=== PATIENT | female | born 1965 | race Caucasian/White ===

== ENCOUNTER 2016-09-11 09:41 | Outpatient (CLI) | payer OTHER ==
[2010-12-01 19:54] VITALS: BMI 33.3
--- NOTE | ~2016-09-11 | HEMODYNAMI ---
PATIENT:RODNEY ELIZABETH MEDICAL RECORD: [id number] : 65 LOCATION:[facility] ADMISSION DATE: 09/11/16 Generatedon:09/11/201615:40 Patient name: RODNEY ELIZABETH Patient #: [id number] SSN: : 1965 Date of study: 09/11/2016 Page: Of Hemodynamic Procedure Report Patient Data Patient Demographics Procedure consent was obtained First Name: RODNEY Gender: Female Last Name: GLENN : 1965 [facility] Initial: A Age: 51 year(s) Patient #: [id number] Race: Additional ID: [id number] Contact details Address: [address] [place] [address] State: [place] City: [place] Zip code: [address] Past Medical History Allergies: No known allergies Admission Admission Data Admission Date: 09/11/2016 Admission Time: 9:41 Admit Source: Emergency Insurance Payor: [facility] department Health Care Height (in.): 64 BSA: 1.94 (m2) Height (cm.): 162.56 BMI: 33.81 (kg/m2) Weight (lbs.): 197 Weight (kg.): 89.36 Medications upon Admission Medications Dosage Times Administered Last Remarks per Delivery Day Date and Time Clopidogrel Yes 09/11/2016 0:00 Aspirin Yes 09/11/2016 (any) 0:00 Current Diagnosis Diagnosis Description Unstable angina Lab Results Lab Result Date: 09/11/2016 Lab Result Time: 0:00 Biochemistry Name Units Result Min Max BUN mg/dl 14 --(--*-)-- 7 18 Creatinine mg/dl 0.7 --(*---)-- 0.6 1.3 CBC Name Units Result Min Max Hemoglobin g/dl 12.8 -*(----)-- 13.5 17.5 Procedure Procedure Types Cath Procedure Diagnostic Procedure C LH w/Coronaries Miscellaneous Procedures Moderate Sedation up to 15 minutes Procedure Description Procedure Date Procedure Date: 09/11/2016 Procedure Start Time: 15:29 Procedure End Time: 15:40 Procedure Staff Name Function Nicholas Barrow MD Performing Physician Alan Clancy RN Nurse Mundo Mccormick RT Scrub Mary Ann Cardozo RT Monitor Procedure Data Cath Procedure Fluoroscopy Diagnostic fluoroscopy Total fluoroscopy Time: 1.2 time: 1.2 min min Diagnostic fluoroscopy Total fluoroscopy dose: dose: 100.28 mGy 100.28 mGy Contrast Material Contrast Material Type Amount (ml) Isovue 300 43 Entry Location Entry Primary Successful Side Size Upsize Upsize Entry Closure [place]ley ccessful Closure Location (Fr) 1 (Fr) 2 (Fr) Remarks Device Remarks Radial Right 6 Fr Mechanical artery Short Compression Estimated blood loss: 5 ml Diagnostic catheters Device Type Used For End Catheter Placement Terumo 5Fr [place] 110cm LV Angiography catheter Terumo 5Fr [place] 110cm Left Coronary catheter Angiography Terumo 5Fr [place] 110cm Right Coronary catheter Angiography Procedure Complications No complications Procedure Medications Medication Administration Route Dosage Oxygen NC 2 l/min Heparin Flush Bag added to field 2 bags (1000units/500ml NS) 0.9% NaCl I.V. 100 ml/hr Fentanyl I.V. 100 mcg Versed I.V. 2 mg Fentanyl I.V. 50 mcg Versed I.V. 1 mg Fentanyl I.V. 50 mcg Versed I.V. 1 mg Radial Cocktail added to field 1 syringe (Verapomil 2mg/Nitro 400mcg/Heparin 1500units) Radial Cocktail I.A. 1 syringe (Verapomil 2mg/Nitro 400mcg/Heparin 1500units) Hemodynamics Rest BSA: 1.94 (m2) HGB: 12.8 (g/dl) O2 Consumption: Estimated: 180.91 (ml/min) O2 Co nsumption indexed: Estimated:93.25 (ml/min/m) Heart Rate: 59 (bpm) Snapshots Pre Cath Intra NCS Post Cath Vital Signs Time Heart Resp SPO2 NIBP (mmHg) Rhythm Pain Sedation Rate (ipm) (%) Status Level (bpm) 14:58:44 62 18 99 144/68(71) NSR 0 (11) 10(A) , No pain 15:03:08 56 18 95 151/79(107) NSR 0 (11) 10(A) , No pain 15:07:32 50 18 97 126/64(80) NSR 0 (11) 10(A) , No pain 15:11:54 51 18 98 117/59(81) NSR 0 (11) 9(A) , No pain 15:16:14 51 17 98 108/59(73) NSR 0 (11) 9(A) , No pain 15:20:30 54 17 98 104/62(79) NSR 0 (11) 9(A) , No pain 15:24:42 53 17 97 103/56(73) NSR 0 (11) 9(A) , No pain 15:28:58 52 17 97 105/58(76) NSR 0 (11) 9(A) , No pain 15:33:18 58 16 95 112/47(73) NSR 0 (11) 9(A) , No pain 15:37:34 70 17 92 88/50(63) NSR 0 (11) 9(A) , No pain 15:39:55 56 18 94 91/44(72) NSR 0 (11) 9(A) , No pain Medications Time Medication Route Dose Verified Delivered Reason Notes Effectiveness by by 15:12:58 Oxygen NC 2 l/min Alan Alan Per Aston Clancy RN physician RN 15:13:09 Heparin Flush added 2 bags Alan Alan used for Bag to Aston Clancy RN procedure (1000units/500ml RN NS) 15:14:37 0.9% NaCl I.V. 100 Alan Alan Per ml/hr Aston Calncy RN physician RN 15:27:59 Fentanyl I.V. 100 mcg Alan Alan for sedation Aston Clancy RN RN 15:28:06 Versed I.V. 2 mg Alan Alan for sedation Aston Clancy RN RN 15:29:56 Fentanyl I.V. 50 mcg Alan Alan for sedation Aston Clancy RN RN 15:29:59 Versed I.V. 1 mg Alan Alan for sedation Aston Clancy RN RN 15:31:57 Fentanyl I.V. 50 mcg Alan Alan for sedation Aston Clancy RN RN 15:32:00 Versed I.V. 1 mg Alan Alan for sedation Aston Clancy RN RN 15:33:10 Radial Cocktail added 1 Alan Alan used for (Verapomil to syringe Aston Clancy RN procedure 2mg/Nitro field RN 400mcg/Heparin 1500units) 15:33:15 Radial Cocktail I.A. 1 Alan Peterson for (Verapomil syringe Aston Barrow MD vasodilation 2mg/Nitro RN 400mcg/Heparin 1500units) Procedure Log Time Note 13:21:28 Time tracking: Regular hours 13:21:32 Plan of Care:Hemodynamics will remain stable., Cardiac rhythm will remain stable., Comfort level will be maintained., Respiratory function will remain adequate., Patient/ family verbilizes understanding of procedure., Procedure tolerated without complication., Recovers from procedure without complications.. 13:21:36 Admit Source: Emergency department 14:30:33 Mary Ann Cardozo RT(R) sent for patient. Start room use. 14:46:35 Patient received from ED to CCL 3 Alert and oriented. Tansferred to table in Supine position. 14:46:36 Warm blankets applied, and torri hugger turned on for patient comfort. 14:46:36 Correct patient and procedure confirmed by team. 14:46:38 Signed procedure consent form obtained from patient. 14:46:39 ECG and BP/O2 sat monitors applied to patient. 14:46:48 Vital chart was started 14:46:49 Baseline sample Acquired. 14:46:53 Rhythm: sinus bradycardia 14:46:54 Full Disclosure recording started 14:46:59 H&P Date Dictated: 09/11/2016 Within 30 days and on chart.. 14:47:00 Pre-procedure instructions explained to patient. 14:47:01 Pre-op teaching completed and patient verbalized understanding. 14:47:03 Family in waiting room. 14:47:05 Patient NPO since Midnight. 14:47:18 Is the patient allergic to Iodine/contrast media? No. 14:48:22 Patient allergic to No known allergies 14:49:54 Is patient on blood thinner?Yes 14:49:57 ACC The patient was administered the following blood thiners within the last 24 hours: ACCPlavix 14:49:59 Patient diabetic? No. 14:50:02 ----Pre-sedation anethsthesia assessment.---- 14:50:04 Previous problem with sedation/anesthesia? No ? 14:50:05 Snore? Yes 14:50:07 Sleep apnea? No 14:50:08 Deviated septum? No 14:50:09 Opens mouth fully? Yes 14:50:10 Sticks out tongue? Yes 14:50:12 Airway obstruction? No ? 14:50:14 Dentures? No ? 14:50:17 Pre procedure: right dorsailis pedis pulse 1+ Palpable, but thready & weak; easily obliterated 14:50:21 Modified Singh's test Ulnar < 7 seconds 14:50:24 Patient pain scale 0/10 ?. 14:50:29 IV patent on arrival in left antecubital with 0.9% NaCl at 10ml/hr. 14:50:46 Right Radial & Right Groin area was prepped with chlora-prep and draped in sterile fashion 14:50:47 Alarms reviewed by R. N. 14:50:47 Sharps counted by scrub and verified by R.N. 14:55:05 Lab Result : BUN 14 mg/dl 14:55:05 Lab Result : Creatinine 0.7 mg/dl 14:55:05 Lab Result : Hemoglobin 12.8 g/dl 14:55:45 Lab results completed and on chart. 14:57:03 Patient Weight : 89.36 lbs 14:57:06 Patient Height : 162.56 inches 14:57:08 Current Diagnosis : Unstable angina 14:57:23 Use device set Radial Dx 14:57:25 Acist Syringe opened to sterile field. 14:57:25 Medline Cath Pack opened to sterile field. 14:57:26 Bag Decanter opened to sterile field. 14:57:26 Terumo 6Fr Slender Glidesheath opened to sterile field. 14:57:26 St Bradley 260cm J .035 wire opened to sterile field. 14:57:27 Acist Hand Control opened to sterile field. 14:57:27 Acist Manifold opened to sterile field. 14:57:28 Tegaderm 4 x 4 opened to sterile field. 14:58:50 IV Extension Set opened to sterile field. 14:59:25 Insurance Payor : [facility] 15:00:35 IV started by Alan Clancy RN inleft hand with a 22 gauge IV catheter with 0.9% NaCl at KVO. 15:01:05 22g IV Catheter opened to sterile field. 15:12:58 Oxygen 2 l/min NC was given by Alan Clancy RN; Per physician; 15:13:09 Heparin Flush Bag (1000units/500ml NS) 2 bags added to field was given by Alan Clancy RN; used for procedure; 15:14:37 0.9% NaCl 100 ml/hr I.V. was given by Alan Clancy RN; Per physician; 15:27:25 Final Timeout: patient, procedure, and site verified with staff and physician. All members of the team are in agreement. 15::29 Right Radial site verified by team. 15:27:36 Physical assessment completed. ASA score P 2 - A patient with mild systemic disease as per Nicholas Barrow MD. 15:27:38 Sedation plan: IV Moderate Sedation Versed, Fentanyl 15::59 Fentanyl 100 mcg I.V. was given by Alan Clancy RN; for sedation; 15:28:06 Versed 2 mg I.V. was given by Alan Clancy RN; for sedation; 15:29:41 Procedure started. 15:29:47 Local anesthetic to right radial artery with Lidocaine 2% by Nicholas Barrow MD.INITIAL ACCESS ONLY 15:29:56 Fentanyl 50 mcg I.V. was given by Alan Clancy RN; for sedation; 15::59 Versed 1 mg I.V. was given by Alan Clancy RN; for sedation; 15:31:23 A 6 Fr Short sheath was inserted into the Right Radial artery 15:31:57 Fentanyl 50 mcg I.V. was given by Alan Clancy RN; for sedation; 15:32:00 Versed 1 mg I.V. was given by Alan Clancy RN; for sedation; 15:33:10 Radial Cocktail (Verapomil 2mg/Nitro 400mcg/Heparin 1500units) 1 syringe added to field was given by Alan Clancy RN; used for procedure; 15:33:15 Radial Cocktail (Verapomil 2mg/Nitro 400mcg/Heparin 1500units) 1 syringe I.A. was given by Nicholas Barrow MD; for vasodilation; 15:33:35 A Terumo 5Fr [place] 110cm catheter was advanced over the wire and used for LV Angiography. 15:34:02 LV gram done using RIZO 15:34:06 EF : 60 % 15:34:10 Injector settings: Ml/sec: 5, Volume: 15, 15:34:15 A Terumo 5Fr [place] 110cm catheter was advanced over the wire and used for Left Coronary Angiography. 15:35:09 Catheter removed. 15:35:26 A Terumo 5Fr [place] 110cm catheter was advanced over the wire and used for Right Coronary Angiography. 15:35:37 Catheter removed. 15:35:58 Sheath removed intact; hemostasis achieved with Mechanical Compression to the Right Radial artery. 15:36:00 Procedure ended.(Physican Out) 15:36:14 Terumo TR Band Standard opened to sterile field. 15:36:32 Fluoroscopy time 01.20 minutes. 15:36:39 Flurop Dose total: 100.28 15:36:39 Fluoroscopy dose: 100.28 mGy 15:37:03 Contrast amount:Isovue 300 43ml. 15:37:05 Sharps counted by scrub and verified by R.N. 15:37:07 TR band inflated with 12cc of air. 15:37:08 Insertion/operative site no bleeding no hematoma. 15:37:16 Post right radial artery:stable, clean and dry 15:37:19 Post Procedure Pulses reassessed and unchanged 15:37:21 Post-procedure physical assessment completed. ASA score P 2 - A patient with mild systemic disease as per Nicholas Barrow MD. 15:37:23 Post procedure rhythm: unchanged. 15:37:25 Estimated blood loss: 5 ml 15:37:27 Post procedure instruction explained to patient.Patient verbalizes understanding. 15:37:27 Patient needs reinforcement of post procedure teaching. 15:37:34 Procedure type changed to Cath procedure, Diagnostic procedure, LHC, LHC w/Coronaries, Miscellaneous Procedures, Moderate Sedation up to 15 minutes 15:38:19 Procedure Complication : No complications 15:38:22 See physician's report for complete and final results. 15:39:15 Procedure and supply charges have been captured, reviewed, submitted and are correct. 15:40:17 Vital chart was stopped 15:40:18 Report given to Pre/Post Procedure Room. 15:40:22 Patient transfered to Pre/Post Procedure Room with Stretcher. 15:40:24 Procedure ended. 15:40:24 Full Disclosure recording stopped 15:40:30 End room use (Document Last) Device Usage Item Name Manufacture Quantity Catalog Hospital Part Current Minimal Lot# / Number Charge Number Stock Stock Serial# Code Acist Acist 1 69435 [id number] 680830 149313 20 Syringe Medical [employer] Inc Medline Cardinal 1 [id number] [id number] 35024 070942 5 Cath Pack Health Bag Microtek 1 2002S [id number] 98944 504498 5 Decanter Medical Inc. Terumo 6Fr Terumo 1 [id number] 716867 069710 947723 [address] Bradley 1 047228 073632 443644 748687 30 260cm J .035 wire Acist Hand Acist 1 73649 973924 827615 407641 5 Control Medical Systems Inc Acist Acist 1 04101 977182 343918 914502 5 Manifold Medical Systems Inc Tegaderm 4 3M 1 1626W 475611 390876 840421 5 x 4 IV Hospira 1 10493-40 106794 63969 856477 5 Extension Set 22g IV B. Jules 1 [id number] 326740 057908 051383 5 Catheter Terumo 5Fr Terumo 1 40-1758 151039 930944 279072 5 [place] 110cm catheter Terumo TR Terumo 1 [id number] 224916 638896 144675 40 Band Standard Signature Audit [place] Stage Time Signature Unsigned Intra-Procedure 09/11/2016 Mary Ann 3:40:41 PM Counts RT(R) Signatures Monitor : Mary Ann Signature : Counts RT Date : Time : [facility] [address] [place] [address]
[2016-09-11 10:38] LABS: BASOPHILS 0.3 % (0.0-2.0); EOSINOPHILS 0.3 % (0-7); HEMATOCRIT 38.1 % (36.0-48.0); HEMOGLOBIN 12.8 g/dL (12-16); LYMPHOCYTES 40.3 % (15-50); MCHC 33.6 g/dL (31.0-37.0); MCV 92.3 fL (80.0-100.0); MEAN PLATELET VOLUME 10.3 fL (7.4-10.4); MONOCYTES 13.7 % (2-11); NEUTROPHILS 45.4 % (40-80); RBC 4.13 10x6/uL (4.00-5.40); RDW 13.2 % (11.5-14.5)
[2016-09-11 10:41] LABS: PLATELET COUNT 148 10x3/uL (130-400)
[2016-09-11 10:52] LABS: ALKALINE PHOSPHATASE 61 U/L (46-116); ALT (SGPT) 48 U/L (10-68); BILIRUBIN - TOTAL 0.38 mg/dL (0.2-1.3); CALC OSMOLALITY 278 mosm/kg (275-300); CALCIUM 9.4 mg/dL (8.5-10.1); CARBON DIOXIDE 27.1 mmol/L (21.0-32.0); CHLORIDE - SERUM 102 mmol/L (98-107); CREATININE - SERUM 0.7 mg/dL (0.6-1.3); GLUCOSE 104 mg/dL (74-106); PROTEIN - SERUM 7.2 g/dL (6.4-8.2); SODIUM 139 mmol/L (136-145); UREA NITROGEN 14 mg/dL (7-18); eGFR NON AFRICAN AMERICAN > 90 mL/min (90-120)
[2016-09-11 11:01] LABS: CHOL - HDL RATIO 2.1 ratio (2.3-4.1); CHOLESTEROL, TOTAL 184 mg/dL (0-200); CKMB 9.7 U/L (0.0-3.6); CREATINE KINASE 238 UL (21-215); HDL CHOLESTEROL 88 mg/dL (32-96); LDL CHOLESTEROL 62 mg/dL (0-100); LDL-HDL RATIO 0.7 ratio (1.5-3.5); TRIGLYCERIDE 170 mg/dL (30-200)
[2016-09-11 11:05] LABS: TROPONIN-I < 0.017 ng/mL (0.000-0.060)
[2016-09-11 11:31] LABS: APPEARANCE CLOUDY (CLEAR); COLOR ORANGE (YELLOW); GLUCOSE NEGATIVE (NEGATIVE); LEUKOCYTE ESTERASE 1+ (NEGATIVE); NITRITE NEGATIVE (NEGATIVE); PROTEIN 1+ mg/dL (NEGATIVE)
[2016-09-11 11:32] LABS: BACTERIA FEW /hpf (NONE SEEN); BILIRUBIN NEGATIVE (NEGATIVE); KETONE MODERATE mg/dL (NEGATIVE); MUCUS <1+ /lpf (NONE SEEN); RED CELLS - URINE 0-5 /hpf (0-5); WHITE CELLS - URINE 0-5 /hpf (0-5)
--- NOTE | 2016-09-11 16:05 | NUR ---
AWAKE, ALERT, SPEAKING WITH FAMILY AT BEDSIDE. ROOM AIR, NO RESP DISTRESS NOTED. VSS. TR BAND TO RIGHT WRIST, DRSG CDI. WILL CONTINUE TO MONITOR.
--- NOTE | 2016-09-11 16:37 | NUR ---
RESTING WITH EYES CLOSED. NO DISTRESS NOTED, OR C/O CHEST PAIN OR NAUSEA. VSS. RIGHT WRIST DRSG CDI.
[2016-09-11] MEDS ORDERED: LIPITOR20 MG PO (16:47)
[2016-09-11] MEDS ORDERED: PRINIVIL20 MG PO (16:47)
[2016-09-11] MEDS ORDERED: CLONAZEPAM0.5 MG/TAB PO (16:48)
[2016-09-11] MEDS ORDERED: ULTRAM50 MG PO (16:48)
[2016-09-11] MEDS ORDERED: BAYER CHEWABLE81 MG PO (16:48)
[2016-09-11] MEDS ORDERED: ESTRACE1 MG PO (16:48)
--- NOTE | 2016-09-11 17:10 | NUR ---
2CC OF AIR REMOVED FROM TR BAND. LEFT FA PIV D/C'D WITH CATHETER INTACT. BANDAID TO SITE.
--- NOTE | 2016-09-11 17:21 | NUR ---
5CC OF AIR REMOVED FROM TR BAND, NO BLEEDING NOTED. PT TO RESTROOM TO VOID.
--- NOTE | 2016-09-11 17:30 | NUR ---
DISCHARGE INSTRUCTIONS GIVEN, VERBALIZED UNDERSTANDING. REMAINING AIR REMOVED FROM TR BAND AND DRESSING PLACED TO SITE. NO BLEEDING NOTED.
--- NOTE | 2016-09-11 17:32 | NUR ---
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 LEFT FACILITY WITH FAMILY MEMBER AND ALL PERSONAL BELONGINGS.
--- NOTE | 2016-09-21 10:08 | CN ---
PATIENT NAME:RODNEY ELIZABETH MEDICAL RECORD: [id number] : 65 LOCATION:D.CAT ADMIT DATE: ACCOUNT: [id number] CONSULTING PHYSICIAN: MELVINA TELLEZ MD REFERRING PHYSICIAN: MELVINA TELLEZ MD DATE OF CONSULTATION: 09/11/2016 Cardiology Consultation DIAGNOSES: 1. Angina. 2. Abnormal ECG. 3. Coronary artery disease. 4. Previous percutaneous transluminal coronary angioplasty stent. HISTORY OF PRESENT ILLNESS: Mrs. Elizabeth presents with anginal symptomatology. Last cardiac intervention was in 2010. For the past 2 months, she has had increasing episodes of chest pain, chest discomfort compatible with angina. She had severe chest pain, chest discomfort today. Her CPK and CPK-MB are elevated, but her troponin is normal. Her EKG has T-wave inversions anterolaterally. PHYSICAL EXAMINATION: GENERAL APPEARANCE: Well-nourished, well-developed, appears stated age. Level of distress, comfortable. PSYCHIATRIC: Mental status, alert, normal affect. Orientation, oriented to time, place and person. EYES: Lids and conjunctiva, noninjected. No discharge, no pallor. ENT: Lips, teeth, gums, normal dentition. Oropharynx, no cyanosis, no pallor. NECK: Carotid arteries, bilateral normal upstroke, no bruits, no thrills. JUGULAR VEINS: No jugular venous pressure or distention. CERVICAL LYMPH NODES: Nontender, nonenlarged. THYROID: Not enlarged. Nontender. No nodules. LUNGS: Respiratory effort, unlabored. CHEST: Normal curvature. No thoracic deformity. No chest wall tenderness. Percussion, resonant. Auscultation, clear. No wheezes, no rales, no rhonchi. CARDIOVASCULAR: Precordial exam, nondisplaced. No heaves or pericardial thrills. Rate and rhythm, regular. Heart sounds, normal S1, normal S2. No S3, no gallop, no rub. Systolic murmur, not heard. Diastolic murmur, not heard. EXTREMITIES: No cyanosis, no edema. Peripheral pulses, full and equal in all extremities, except as noted. No bruits appreciated. ABDOMEN: Soft, nondistended. Normal aorta. No bruit. Nontender. No masses. Liver, nontender, no hepatomegaly. Spleen, nontender, no splenomegaly. MUSCULOSKELETAL: No joint tenderness. No joint swelling. No erythema. NEUROLOGICAL: Normal gait, normal strength, normal tone. SKIN: Warm and dry. REVIEW OF SYSTEMS: The patient reports easy bruising but reports no swollen glands. The patient reports no fever, no night sweats, no significant weight gain, no significant weight loss. No significant exercise tolerance. The patient reports no dry eyes, no irritation, no vision change. Patient reports no difficulty hearing and no ear pain. Patient reports no frequent nose bleeds or nose and sinus problems. Patient reports on arm pain on exertion. No shortness of breath while lying down. No history of heart murmur. Patient reports no cough, no wheezing or coughing up blood. Patient reports no abdominal pain, no vomiting. Normal appetite. No diarrhea and not vomiting CONSULT REPORT [id number] RODNEY ELIZABETH blood. No nausea and no constipation. Patient reports no incontinence. No difficulty urinating. No hematuria. No increased frequency. Patient reports no muscle aches. No weakness, no arthralgias, no back pain. No swelling of the extremities. Patient reports no abnormal mole, no jaundice, no rashes. Reports no loss of consciousness. No weakness and no numbness. No seizures, dizziness, or headaches. The patient reports no depression, no sleep disturbance, feeling safe in a relationship and no alcohol abuse. Patient reports on fatigue. Reports no runny nose or sinus pressure. No itching, no hives, and no frequent sneezing. She continues to have episodes of anginal chest discomfort. OVERALL IMPRESSION: Unstable angina with continued chest pain with an abnormal ECG in a patient with a past history of coronary artery disease. Most likely, she has recurrent hemodynamically significant coronary artery disease. We will proceed with coronary angiography. Further care depends upon the findings of the angiography. TRANSINT:[id number] Voice Confirmation ID: [id number] DOCUMENT ID: [id number] MELVINA TELLEZ MD at 1008 CC: [id number] DICTATION DATE: 09/11/16 1246 VALUE STREAM MANAGER: 09/11/161958 DEP CLI 09/11/16 [facility] [address] [place] [id number]
--- NOTE | 2016-09-21 10:08 | OP ---
PATIENT NAME: RODNEY ELIZABETH MEDICAL RECORD: [id number] :65 LOCATION:D.CAT ADMISSION DATE: SURGEON: MELVINA TELLEZ MD DATE OF OPERATION: 09/11/2016 PROCEDURES: 1. Left heart catheterization. 2. Selective coronary angiography. 3. Left ventriculogram. INDICATIONS: Angina and coronary artery disease. PROCEDURE IN DETAIL: After informed consent was obtained and after a detailed explanation of the risks, benefits as well as alternative therapies, the patient elected to proceed with angiogram and heart catheterization. The right radial area is prepped and draped in normal sterile fashion. The right radial artery was cannulated via modified Seldinger technique with placement of 6-Bangladeshi sheath. All catheters exchanged through this sheath. FINDINGS: The left ventriculogram was performed in the standard 30-degree RIZO view, reveals good cardiac wall motion throughout all segments. Overall ejection fraction estimated 60%. SELECTIVE CORONARY ANGIOGRAPHY: 1. Left main showed no significant angiographic disease. 2. Left anterior descending has previously placed stent that is widely patent with no significant restenosis. No disease elsewise throughout the LAD or its branches. 3. Left circumflex has moderate irregularities, but no flow-limiting stenosis. 4. Right coronary has moderate irregularities, but no flow-limiting stenosis. OVERALL IMPRESSION: No significant coronary artery disease is present. No significant restenosis of the previously placed stent, normal left ventricular function. Chest pain is noncardiac in etiology. TRANSINT:[id number] Voice Confirmation ID: [id number] DOCUMENT ID: [id number] MELVINA TELLEZ MD at 1008 CC: [id number] DICTATION DATE: 09/11/16 1542 MANAGER CORPORATE MARKETING: 09/11/16 2202 DEP CLI 09/11/16 [place] [id number] [place] [id number]
== END 2016-09-11 17:35 | disposition home or self-care (01) ==
LOC: D.ER 09:41 → D.CATH 09:41 → EDSTATUS 13:30 → D.CATH 17:35
PROVIDERS: Emergency Medicine
DX: R07.89 Other chest pain (principal); I25.10 Atherosclerotic heart disease of native coronary artery without angina pectoris; Z95.5 Presence of coronary angioplasty implant and graft

== ENCOUNTER 2016-12-25 13:05 | Outpatient (CLI) | payer OTHER ==
[2010-12-01 19:54] VITALS: BMI 33.3
[~2016-12-25 13:05] MED LIST: BAYER CHEWABLE81 MG PO; CLONAZEPAM0.5 MG/TAB PO; ESTRACE1 MG PO; LIPITOR20 MG PO; PRINIVIL20 MG PO; ULTRAM50 MG PO
== END 2016-12-25 13:17 ==
LOC: D.MAMMO 13:05
DX: Z12.31 Encounter for screening mammogram for malignant neoplasm of breast (principal)

== ENCOUNTER 2017-05-11 07:58 | Day surgery (SDC) | payer OTHER ==
[2017-05-11] MEDS ORDERED: NORVASC5 MG PO (09:02)
[2017-05-11] MEDS ORDERED: NORMODYNE / TR300 MG PO (09:02)
[2017-05-11] MEDS ORDERED: SOMA250 MG PO (09:02)
[2017-05-11] MEDS ORDERED: VALIUM5 MG PO (09:03)
[2017-05-11] MEDS ORDERED: MULTIPLE VITAMI1 TA1 PO (09:04)
[2017-05-11] MEDS ORDERED: FISH OIL 1,0001 CA1 PO (09:04)
[2017-05-11] MEDS ORDERED: VITAMIN C250 MG PO (09:04)
[2017-05-11] MEDS ORDERED: VITAMIN B-1250 MG PO (09:05)
[2017-05-11] MEDS ORDERED: VIT B 12 (09:06)
[2017-05-11] MEDS ORDERED: MAGNESIUM OXID250 MG PO (09:06)
[2017-05-11] MEDS ORDERED: NITRO-DUR0.4 MG (09:07)
[2017-05-11] MEDS ORDERED: VITAMIN D3400 UNI1 (09:07)
[2017-05-11] MEDS ORDERED: NITROGLYCERIN (09:08)
[2017-05-11 09:17] VITALS: BP 146/78; BMI 33.0
[2017-05-11 09:53] LABS: BASOPHILS 0.3 % (0-2); EOSINOPHILS 1.4 % (0-7); HEMATOCRIT 37.5 % (36.0-48.0); HEMOGLOBIN 12.4 g/dL (12-16); LYMPHOCYTES 25.1 % (15-50); MCH 33.9 pg (26.0-34.0); MCHC 33.1 g/dL (31.0-37.0); MCV 102.5 fL (80.0-100.0); MEAN PLATELET VOLUME 9.9 fL (7.4-10.4); MONOCYTES 10.9 % (2-11); NEUTROPHILS 62.3 % (40-80); RBC 3.66 10x6/uL (4.00-5.40); WBC 3.6 10x3/uL (4.8-10.8)
[2017-05-11 10:00] LABS: CALC OSMOLALITY 284 mosm/kg (275-300); CALCIUM 9.1 mg/dL (8.5-10.1); CARBON DIOXIDE 24.4 mmol/L (21.0-32.0); CHLORIDE - SERUM 108 mmol/L (98-107); CREATININE - SERUM 0.6 mg/dL (0.6-1.3); GLUCOSE 90 mg/dL (74-106); POTASSIUM - SERUM 3.7 mmol/L (3.5-5.1); SODIUM 144 mmol/L (136-145); UREA NITROGEN 6 mg/dL (7-18); eGFR NON AFRICAN AMERICAN > 90 mL/min (90-120)
[2017-05-11 10:02] LABS: PLATELET COUNT 189 10x3/uL (130-400)
--- NOTE | 2017-05-11 15:39 | NUR ---
1420 AWAKE & ALERT DRESSED. GIVEN DISCHARGE INFORMATION INCLUDING MED REC, [facility] OPS D/C INSTRUCTIONS. PT VOICED UNDERSTANDING. TO PRIVATE CAR PER WHEELCHAIR BY VOLUNTEER. HOME WITH . Connor PARSONS R.N.
--- NOTE | 2017-05-14 10:04 | HP ---
PATIENT: RODNEY ELIZABETH MEDICAL RECORD: [id number] ACCOUNT: [id number] LOCATION:[facility] : 65 ADMISSION DATE: 05/11/17 [address] Amberly Turcios, she is a primary care practitioner in [place]. CHIEF COMPLAINT: Desires screening colonoscopy. HISTORY OF PRESENT ILLNESS: The patient desires screening colonoscopy. She has had no rectal bleeding. No abdominal pain. She has had no history of colon polyps. PAST MEDICAL AND SURGICAL HISTORY: Sleep apnea, not on CPAP, coronary artery disease, hypertension, history of coronary stents times 1, history of cholecystectomy, history of Lap-Band, history of panniculectomy, history of hysterectomy. REVIEW OF SYSTEMS: Negative for CVA or seizures. Negative for diabetes or thyroid problems. HOME MEDICINES: Listed on the chart. ALLERGIES: No known drug allergies. PHYSICAL EXAMINATION: GENERAL: The patient does not appear acutely ill. She does not appear chronically ill. VITAL SIGNS: Reviewed. EARS: External ears appear normal. EYES: Extraocular movements are intact. NECK: Trachea is midline. CHEST: No intercostal retractions. PULMONARY: Nonlabored, no stridor. ABDOMEN: No peritonitis with movement. IMPRESSION: Desires screening colonoscopy. PLAN: Screening colonoscopy. TRANSINT:[id number] Voice Confirmation ID: [id number] DOCUMENT ID: [id number] JOSE TOLBERT MD at 1004 CC: AMBERLY TURCIOS MD [id number] DICTATION DATE: 05/11/17 1234 GLUE COOK: 05/11/17 1308 [facility] 05/11/17 [place] [id number] [place] [id number]
--- NOTE | 2017-05-14 10:04 | OP ---
PATIENT NAME: RODNEY ELIZABETH MEDICAL RECORD: [id number] :65 LOCATION:D[facility] ADMISSION DATE: SURGEON: ALVARO TOLBERT MD DATE OF OPERATION: 05/11/2017 PREOPERATIVE DIAGNOSIS: Desires screening colonoscopy. POSTOPERATIVE DIAGNOSIS: Desires screening colonoscopy. PROCEDURE: Screening colonoscopy. SURGEON: Alvaro Tolbert MD AURICULOTHERAPIST: None. BLOOD LOSS: Minimal. ANESTHESIA: IV sedation. COMPLICATIONS: None. The risks, possible complications, and alternatives to the procedure were explained to the patient. She elects to proceed. The discussion specifically included, but was not limited to, bleeding requiring emergency reoperation and perforation as well as possible need for additional procedures. ENDOSCOPIC COURSE: The patient was conveyed to the GI lab on 05/11/2017. IV sedation was induced by the anesthesia staff. The patient was placed in the Ham position. A digital rectal examination was performed. A colonoscope was inserted through the anus. It was easily advanced to the cecum. The prep was adequate. I slowly withdrew the endoscope. I irrigated and aspirated extensively. I dragged the folds. I noted no polyps or masses. A combination of direct imaging as well as narrow band imaging were utilized. A retroflexed view was obtained in the rectum. I then unretroflexed the scope and removed it under direct vision. Unless the patient develops new symptoms such as bleeding or abdominal pain, the patient can wait 10 years until her next colonoscopy. TRANSINT:[id number] Voice Confirmation ID: [id number] DOCUMENT ID: [id number] ALVARO TOLBERT MD at 1004 CC: NELSY LARA MD [id number] DICTATION DATE: 05/11/17 1317 QUAD STAYER: 05/11/17 1402 [facility] [place] 05/11/17 [place] [id number]
== END 2017-05-11 14:20 | disposition home or self-care (01) ==
LOC: D.OPS 07:58
PROVIDERS: Anesthesiology
DX: Z12.11 Encounter for screening for malignant neoplasm of colon (principal); G47.30 Sleep apnea, unspecified; I25.10 Atherosclerotic heart disease of native coronary artery without angina pectoris; I10 Essential (primary) hypertension; Z95.5 Presence of coronary angioplasty implant and graft; Z98.84 Bariatric surgery status; Z01.812 Encounter for preprocedural laboratory examination

== ENCOUNTER 2019-03-08 13:00 | Outpatient (CLI) | payer OTHER ==
[~2019-03-08 13:00] MED LIST changes: +FISH OIL 1,0001 CA1 PO; +MAGNESIUM OXID250 MG PO; +MULTIPLE VITAMI1 TA1 PO; +NITRO-DUR0.4 MG; +NITROGLYCERIN; +NORMODYNE / TR300 MG PO; +NORVASC5 MG PO; +SOMA250 MG PO; +VALIUM5 MG PO; +VIT B 12; +VITAMIN B-1250 MG PO; +VITAMIN C250 MG PO; +VITAMIN D3400 UNI1
== END 2019-03-08 13:30 | disposition home or self-care (01) ==
LOC: D.MAMMO 13:00
PROVIDERS: ATTEND Emergency Medicine
DX: Z12.31 Encounter for screening mammogram for malignant neoplasm of breast (principal)

== ENCOUNTER 2020-03-14 17:43 | Outpatient (CLI) | payer OTHER | END 2020-03-14 23:59 | disposition home or self-care (01) | LOC: D.MAMMO 17:43 | PROVIDERS: ATTEND Emergency Medicine | DX: Z12.31 Encounter for screening mammogram for malignant neoplasm of breast (principal) ==